=== PATIENT | male | born 1950 | race Caucasian/White ===

== ENCOUNTER 2025-04-18 10:42 | Outpatient (REF) | payer MEDICARE, BC, SELFPAY ==
--- NOTE | 2025-04-18 | EMG_ITS ---
Chief complaint:?R20.2 Paresthesia of skin Reason for referral: right hand pain/numbness Referred by:?Pradeep Gee MD Procedure done: Right upper extremity NCS/EMG Right median and ulnar motor studies were performed with F responses. Right radial sensory and median the mixed sensory studies were performed. Right median and ulnar ortho sensory studies were also performed an EMG needle examination was performed. Findings: Right median motor distal latency was moderately prolonged with normal amplitude and conduction velocity. Right median mixed distal latency was moderately prolonged with moderately slow conduction velocity. Right radial sensory conduction velocity was mildly similarly mildly low amplitude. Needle examination revealed long duration polyphasic potential in right mid cervical paraspinals and long duration tall polyphasic potentials in triceps deltoid and biceps. Impression: 1. [id number] right median neuropathy across carpal tunnel 2. Chronic right mid cervical radiculopathy Cod[place] 80192 1 extremity MTDD
--- OUTSIDE RECORDS SUMMARY | 2025-04-18 13:07 | XMS_ITS | Clinical Summary ---
Author Organization [facility] Address [address] [place] [address] Care Team Providers Care Commercial Artist Name Role Phone Colin Shrestha Primary Care Provider Allergies Active Allergy Reactions Criticality Noted Date Comments Atorvastatin Calcium Unknown 11/02/2005 Codeine Nausea And Vomiting 08/09/2005 Medications lisinopril (PRINIVIL,ZESTR IL) 20 mg tablet TAKE 1 TABLET BY MOUTH TWICE DAILY 03/07/2019 Active vitamin D3 1,000 unit capsule Take 1 capsule by mouth. Active vitamin S32-pidpf acid 0.5-1 mg tablet Take 1 tablet by mouth. Active hydroCHLOROthia zide (HYDRODIURIL) 25 mg tablet Take 12.5 mg by mouth. 05/25/2019 Active cyclobenzaprine (FLEXERIL) 10 mg tablet TK 1 T PO TID PRF MSP 04/12/2019 Active timolol (TIMOPTIC) 0.5% ophthalmic solution 05/17/2019 Active milk thistle 175 mg tablet Take 175 mg by mouth daily. Active alpha lipoic acid 300 mg capsule Take by mouth. Active coQ10, ubiquinol, 100 mg capsule Take by mouth. Active resveratrol 100 mg capsule Take by mouth. Active vitamin B complex capsule Take 1 capsule by mouth daily. Active milk this frt xt/milk this frt (MILK THISTLE EXTRACT ORAL) Take by mouth. Active MILK THISTLE ORAL Take by mouth. Active diclofenac (VOLTAREN) 1% gel SMARTSIG:Gra m(s) Topical PRN 08/27/2021 Active amLODIPine (NORVASC) 2.5 mg tablet SMARTSI Tablet(s) By Mouth Daily 09/09/2022 Active dorzolamide-miles oloL (COSOPT) 22.3-6.8 mg/mL ophthalmic solution SMARTSI Drop(s) In Eye(s) Twice Daily 08/25/2022 Active Social History Tobacco Use Types Packs/Day Years Used Date Smoking Tobacco: Never Assessed Sex and Gender Information Value Date Recorded Sex Assigned at Male 04/25/2021 8:41 AM EDT Legal Sex Male 5:53 AM EDT Gender Identity Male 04/25/2021 8:41 AM EDT Sexual Orientation Straight 04/25/2021 8: 41 AM EDT Last Filed Vital Signs Vital Sign Reading Time Taken Comments Blood Pressure 165/78 09/29/2022 11:26 AM EDT Pulse 93 09/29/2022 11:25 AM EDT Temperature 36.6 C (97.9 F) 09/29/2022 11:25 AM EDT Respiratory Rate 16 09/29/2022 11:25 AM EDT Oxygen Saturation 99% 09/29/2022 11:25 AM EDT Inhaled Oxygen Concentration - - Weight 64.9 kg (143 lb) 09/29/2022 11:25 AM EDT Height 165.1 cm (5' 5 ) 07/23/2020 1:58 PM EST Body Mass Index 23.8 07/23/2020 1:58 PM EST Plan of Treatment Health Maintenance Due Date Last Done Comments Cologuard 1952 Colon Cancer Screening 1950 Colonoscopy 1950 FOBT / Fit Test 1950 Sigmoidoscopy 1950 Zoster Vaccines (3 of 3) 10/24/2018 019, 08/25/2018, 12/31/2013 Alcohol/Substance Use Screening 06/27/2024 Health Care Proxy Review 06/27/2024 COVID-19 Vaccine ( season) 2025 03/24/2022, 04/22/2021, 10/22/2020, Additional history exists Influenza Vaccine (#1) 2025 2, 03/23/2021, 03/11/2020, Additional history exists RSV Vaccine (60+ years old and patients) (1 - 1-dose 75+ series) 01/03/2027 DTaP,Tdap,and Td Vaccines (3 - Td or Tdap) 03/11/2030 03/11/2020, 11/17/2009, 07/28/1999 Pneumococcal Vaccine: 50+ Years Completed 2019, 05/24/2017, 11/30/2013 Hepatitis B Vaccines Aged Out No long er eligible based on patient's age to complete this topic Insurance MEDICARE [facility] FEDERAL [facility] FED 65 PLUS on file Care Teams Commercial Artist Relationship Specialty Start Date End Date Colin Shrestha [address] [place] [phone] PCP - General Hematology 08/31/21
--- OUTSIDE RECORDS SUMMARY | 2025-04-18 13:07 | XMS_ITS | Encounter Summary ---
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 Encounter Details Date Type Department Care Team (Late st Contact Info) Description 04/05/2025 Telephone Internal Medicine - [facility] [address] [place] [phone] Carlito Schumacher MD [address] [place] [phone] Social History Tobacco Use Types Packs/Day Years Used Date Smoking Tobacco: Every Day Cigarettes 1 56.8 Started: 1967 Smokeless Tobacco: Never Comments:Smoking 2 to 3 cigs daily Alcohol Use Standard Drinks/Week Comments No 0 (1 standard drink = 0.6 oz pur e alcohol) Housing Instability Answer Date Recorde d Are you worried that in the next 2 months you may not have stable housing? No 11/08/2024 Food Access & Nutrition Answer Date Rec orded Do you have access to a vari ety of food including fruits and vegetables? Yes 11/08/2024 Access to Healthcare Answer Date Record ed Within the last 3 months, kaylan parra many times did you visit the emergency department for your medical care? 0 11/08/2024 Health Literacy Answer Date Recorded How often do you need to hav e someone help you when you read instructions, pamphlets, or other written material from your doctor or pharmacy? Never 11/08/2024 Caregiver: How often do you need to have someone help you when you read instructions, pamphlets, or other written material from your doctor or pharmacy? Not on file 11/08/2024 Financial Risk Answer Date Recorded How hard is it for you to pa y for the very basics like food, housing, medical care, and air conditioning / heating? Not asked 11/08/2024 Transportation Answer Date Recorded Has the lack of transportati on kept you from meetings, work, or from getting things needed for daily living? No Has the lack of transportati on kept you from medical appointments or from getting medications? No 11/08/2024 Social Isolation Answer Date Recorded How often do you feel lonely or isolated from ose around you? Rarely 11/08/2024 Food Risk Answer Date Recorded Within the past 12 months we worried whether our food would run out before we got money to buy more. Never true 11/08/2024 Within the past 12 months th e food we bought just didn't last and we didn't have money to get more. Never true 11/08/2024 Dependent Care Answer Date Recorded Do you need help finding or paying for care for your loved ones. For example, director child or elderly care for an older adult? No 11/08/2024 Education Answer Date Recorded Do you think completing more education or training, like finishing a GED, going to college, or learning a trade, would be helpful for you? No 11/08/2024 Employment and Income Answer Date Recor ded During the last four weeks, have you been actively looking for work? No 11/08/2024 Living Situation Answer Date Recorded What is your living situation? Unrecognized valu e 11/08/2024 Sex and Gender Information Value Date Recorded Sex Assigned at Male 07/18/2024 7:57 PM EST Legal Sex Male 2:35 AM EST Gender Identity Male 07/18/2024 7:57 PM EST Sexual Orientation Straight 07/18/2024 7: 57 PM EST documented as of this encounter Progress Notes * Chandrika Bishop - 04/12/2025 10:33 AM EDT Letter upfront for pickup * Carlito Schumacher MD - 04/12/2025 9:19 AM EDT signed * Katharine Chen MA - 04/05/2025 2:05 PM EDT Letter pending. Ok to wait * Tommie Ocasio - 04/05/2025 1:56 PM EDT Letter requested for: [facility] [address] Reason for letter: Excuse from Grand Jury Duty/ Badge # [id number], date 05-27-25 Specific notations needed in body of letter: pt is unable to serve to to his medical issues: can't sit for extended periods due to pain & loss of hearing and other Medical issues Date needed for completion: YEVGENIY/ must respond to summon within next 3-5 business days When completed: pls call and pt will diamond picker. [phone] documented in this encounter Plan of Treatment Upcoming Encounters Date Type Department Care Team (Late st Contact Info) Description 07/01/2025 11:30 AM EST Office Visit Internal Medicine - [address] [phone] Carlito Schumacher MD [address] [place] [phone] documented as of this encounter Visit Diagnoses Not on filedocumented in this encounter Additional Health Concerns Assessment Noted Time PHQ-9 Depression Total Score: 0 11/09/19 9:45 AM EDT documented as of this encounter Care Teams Logging Engineer Relationship Specialty Start Date End Date Carlito Schumacher MD [address] [place] [phone] PCP - General Internal Medicine 06/29/24 documented as of this encounter
--- OUTSIDE RECORDS SUMMARY | 2025-04-18 13:07 | XMS_ITS | Clinical Summary ---
Author Organization [address] [place] [address] [place] [phone] Phone Care Team Providers Care Conceptor Name Role Phone Carlito Schumacher MD Primary Care Provider [phone] Allergies Active Allergy Reactions Criticality Noted Date Comments Atorvastatin High 11/02/2005 Other Reaction(s): liver and renal failure Codeine Nausea And Vomiting High 08/09/2005 Other Reaction(s): NAUSEA/VOMITING Medications diclofenac (VOLTAREN) 1 % topical gel Apply 2 g topically 4 times daily. Apply 2 grams to affected area 4 times daily 05/25/20 21 Active cyanocobalamin , vitamin B-12, (VITAMIN B-12 ORAL) Take 1 tablet by mouth 1 (one) time each day. Active cholecalcifero l (VITAMIN D-3) 25 mcg (1,000 unit) capsule Take 1 Cap by mouth daily. Active ubidecarenone (CO Q-10 ORAL) 1 Cap daily. Ac tive MULTIVITAMIN ORAL Take 1 tablet by mouth 1 (one) time each day. Active omeprazole (PriLOSEC) [address] capsule Take 1 capsule (20 mg total) by mouth 1 (one) time each day. Do not crush or chew. 30 each 07/12/19 25 026 Active ascorbic acid (VITAMIN C) 1,000 mg tablet Take 1 tablet (1,000 mg total) by mouth 1 (one) time each day. Active phytonadione, vit K1, (vitamin k) 100 mcg tablet Take 1 tablet (100 mcg total) by mouth 1 (one) time each day. K1 +2 Active magnesium oxide (MAG-OX) 400 mg magnesium tablet Take 1 tablet (400 mg total) by mouth 1 (one) time each day. Active fluticasone propionate (FLONASE) 50 mcg/actuation nasal sprayIndicatio ns:Allergic rhinitis, unspecified seasonality, unspecified trigger Administer 2 sprays into each nostril 1 (one) time each day for 14 days. Shake gently. Before first use, prime pump. After use, clean tip and replace cap. 16 g 07/18/19 25 Active senna-docusate (PERICOLACE) 8.6-50 mg per tablet Take 1 tablet by mouth 2 (two) times a day. 180 each 1 07/27/19 25 Active predniSONE (DELTASONE) 20 mg tablet 1 tablet po tid x 3 days,then 1 tablet po bid x 3days,then 1 tablet po qd x 3days 18 tablet 10/05/19 25 Active cyclobenzaprin e (FLEXERIL) 10 mg tabletIndicati ons:Chronic bilateral low back pain without sciatica TAKE 1 TABLET(10 MG) BY MOUTH AT BEDTIME NEEDED FOR MUSCLE SPASMS 20 tablet 10/25/19 25 Active nicotine (Nicoderm CQ) 14 mg/[address] 1 patch on the skin 1 (one) time each day at the same time. 30 each 11/14/19 25 Active fluticasone-sa lmeterol (ADVAIR DISKUS) 250-50 mcg/dose diskus inhaler Inhale 1 puff by mouth 2 (two) times a day. Rinse mouth with water after use to reduce aftertaste and incidence of candidiasis. Do not swallow. 1 each 11/14/19 25 05 026 Active amLODIPine (NORVASC) 2.5 mg tablet TAKE 1 TABLET(2.5 MG) BY MOUTH 1 TIME EACH DAY 90 tablet 1 12/06/19 25 Active hydroCHLOROthi azide (HYDRODIURIL) 25 mg tablet TAKE 1/2 TABLET BY MOUTH DAILY 45 tablet 1 01/17/20 25 Active lisinopriL (PRINIVIL,ZEST RIL) 20 mg tablet TAKE 1 TABLET BY MOUTH TWICE DAILY 180 tablet 1 01/29/20 25 Active timoloL maleate 0.5 % drops, once daily Administer 1 drop into both eyes 2 (two) times a day. 10 mL 04/15/20 25 Active albuterol HFA (PROAIR HFA ; PROVENTIL HFA ; VENTOLIN HFA) 90 mcg/actuation inhaler INHALE 2 PUFFS BY MOUTH EVERY 6 HOURS NEEDED FOR COUGH OR WHEEZING 8.5 g 2 04/17/20 25 Active dorzolamide-ti moloL (COSOPT) 22.3-6.8 mg/mL ophthalmic solution Administer 1 drop into both eyes 2 (two) times a day. 10 mL 04/17/20 25 Active timoloL maleate 0.5 % drops, once daily Place 1 Drop into both eyes daily. 025 Discontinued(Re order) albuterol HFA (PROAIR HFA ; PROVENTIL HFA ; VENTOLIN HFA) 90 mcg/actuation inhaler INHALE 2 PUFFS BY MOUTH EVERY 6 HOURS NEEDED FOR COUGH OR WHEEZING 8.5 g 2 02/01/20 25 025 Discontinued dorzolamide-ti moloL (COSOPT) 22.3-6.8 mg/mL ophthalmic solution Administer 1 drop into both eyes 2 (two) times a day. 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 Padilla later in including MRI. IMO update Lesion of radial nerve 04/25/2006 Hyperlipidemia 11/23/2005 Alcoholic cirrhosis of liver (CMS/HCC V24, CMS/H CC V28) 11/02/2005 Essential hypertension, benign 11/02/2005 Overview (05/11/2024): 03/07/18 Echo WNL, aortic sclerosis, trace AI, MR. Normal LVEF. 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 Encounters Date Type Department Care Team Description 04/05/2025 Telephone Internal Medicine - [address] [phone] Carlito Schumacher MD 02/02/2025 10:15 AM EDT Office Visit Walk-In Clinic - [address] [phone] Anna Rocha NP Dysuria (Primary Dx); Frequent urination; Acute cystitis without hematuria 01/17/2025 11:45 AM EDT Office Visit Pulmonology - [address] [place] [address] Aniya Penaloza MD Pulmonary emphysema, unspecified emphysema type ([facility] V24, [facility] V28) (Primary Dx); Tobacco use from Last 3 Months Immunizations Immunization Administration Dates Next Due COVID-19 (Moderna/Spikevax) 12yo and older 03/27/2023 H1N1 Inj Preservative Free 05/21/2009 Hepatitis A Adult (Havrix; V aqta) 19yo and older 03/27/2013 Influenza trivalent, 0.5mL ( Fluad) 65yo and older 03/09/2022,03/23/2021,03/11/2020,03/13,03/14/2018,04/08/2017,03/28/2014 ,03/30/2013,03/17/2012,04/23/2011,02/26,04/07/2007,04/08/2006, 5 Influenza trivalent, 0.5mL, preservative free (Fluarix; FluLaval; Fluzone) ages 6mo and older (Afluria) 3 years and older 04/05/2017,04/05/2016,04/04/2015,04/07,04/01/2008 Influenza, Unspecified 03/23/2023 Moderna SARS-CoV-2 COVID-19, mRNA, LNP-S, preservative free 10/22/2020,09/26/2020 Pneumococcal conjugate 13 va lent (Prevnar 13, PCV13) 2mo and older 05/24/2017 Pneumococcal polysaccharide 23 valent (Pneumovax 23) 2yo and older 2019,11/30/2013 Td Tetanus diptheria (Tdvax) 7yo and older 03/11/2020,07/28/1999 Tdap Tetanus diptheria acell ular pertussis (Boostrix; Adacel) 7yo and older 11/17/2009 Zoster Live 12/31/2013 Zoster recombinant (Shingrix ) 19yo and older 08/29/2018,08/25/2018 Surgical History Surgery Date Site/Laterality Comments MULTIPLE TOOTH EXTRACTIONS age 16 PROCEDURE: HISTORICAL DENTAL EXTRACTION; COMMENT: bled for 2 wks due to factor 9 def, mult transfusions HERNIA REPAIR L 04/03 Left PROCEDURE: HISTORICAL HERNIA REPAIR/ING; COMMENT: Dr. 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, CMS/HCC V28) 08/09/2005 DX:Congenital factor IX dis order (HCC); COMMENT: Dx'd age 7 when cut tongue Alcoholic cirrhosis of liver (CMS/HCC V24, CMS/HCC V28) 11/02/2005 DX:Alcoholic cirrhosis of li jamey (HCC) Essential hypertension, benign 11/02/2005 D X:Essential hypertension, benign Urinary frequency 11/02/2005 DX:Urinary luis quency Other and unspecified hyperlipidemia 11/23/2005 DX:Other and unspecified hyperlipidemia Lesion of radial nerve 04/25/2006 DX:Lesion of radial nerve Alcoholic cirrhosis of liver (CMS/HCC V24, CMS/HCC V28) 11/02/2005 DX:Alcoholic cirrhosis of li jamey (HCC) Closed nondisplaced fracture of metatarsal bone of right foot with routine healing 06/10/2016 DX:Closed nondisplaced fract ure of metatarsal bone of right foot with routine healing Family History Medical History Relation Name Comments Other: factor IX deficiency Brother 1 Other: factor IX deficiency Mother Relation Name Status Comments Brother 1 Alive younger has fac tor 9 deficiency same as pt, & HTN Brother 2 Alive hyperlipidemia, HTN Father (Age 62) [place], diabet es Mother (Age 68) heavy smok er, COPD Social History Tobacco Use Types Packs/Day Years Used Date Smoking Tobacco: Every Day Cigarettes 1 56.8 Started: 1966 Smokeless Tobacco: Never Tobacco Cessation:Ready to Q uit: Not Asked; Counseling Given: Not Answered Comments:Smoking 2 to 3 cigs daily Alcohol [...] do you feel lonely or isolated from th ose around you? Rarely 11/08/2024 Food Risk [...] care for your loved ones. For example, school childcare attendant or elderly care for an older adult? [...] Orientation Straight 07/18/2024 7: 57 PM EST Obstetrics History Last Filed Vital Signs Vital Sign Reading Time Taken Comments Blood Pressure 138/66 02/02/2025 10:11 AM EDT Pulse 80 02/02/2025 10:11 AM EDT Temperature 36.5 C (97.7 F) 02/02/2025 10:11 AM EDT Respiratory Rate 16 02/02/2025 10:11 AM EDT Oxygen Saturation 97% 01/17/2025 11:52 AM EDT Inhaled Oxygen Concentration - - Weight 58.6 kg (129 lb 3.2 oz) 01/17/2025 11:52 AM EDT Height 165.1 cm (5' 5 ) 01/17/2025 11:52 AM EDT Body Mass Index 21.5 01/17/2025 11:52 AM EDT Plan of Treatment Upcoming Encounters Date Type Department Care Team (Late st Contact Info) Description 07/01/2025 11:30 AM EST Office Visit Internal Medicine - [address] [phone] Carlito Schumacher MD [address] [place] [phone] Health Maintenance Due Date Last Done Comments Colorectal Cancer Screening: Colonoscopy 1950 RSV Immunization Adult Patients (1 - Risk 50-74 years 1-dose series) 01/03/2002 Zoster Vaccines (3 of 3) 10/24/2018 019, 08/25/2018, 12/31/2013 Medicare Annual Wellness Visit 06/16/2024 06/16/2023 COVID-19 Vaccine ( season) 2025 04/05/2024, 03/27/2023, 03/24/2022, Additional history exists Influenza Vaccine (#1) 2025 , 03/23/2023, 03/16/2023, Additional history exists Hypertension/CHF/CAD Annual BMP Blood Test 06/29/2025 06/29/2024, 11/28/2023, 11/28/2023 Social Influencers of Health Screening 11/08/2025 11/08/2024 Falls Risk Assessment 11/15/2025 11/15/2024, 023 Lung Cancer Screening (Low Dose CT) 01/02/2026 01/02/2025 Cholesterol Screening (Lipid Panel) 06/29/2029 06/29/2024, 11/28/2023, 11/28/2023 DTaP,Tdap,and Td Vaccines (4 - Td or Tdap) 03/11/2030 03/11/2020, 11/17/2009, 07/28/1999 Abdominal Aortic Aneurysm (AAA) Screen Completed 07/20/2011 Hepatitis A Vaccines Aged Out 03/27/2013 No long er eligible based on patient's age to complete this topic Pneumococcal Vaccine: 50+ Years Completed 2019, 05/24/2017, 11/30/2013 Hepatitis C Screening Completed 08/31/2021, 022 Depression Screening Completed 11/08/2024, 06/16/20 23 HIB Vaccines Aged Out No longer eligi ble based on patient's age to complete this topic HPV Vaccines Aged Out No longer eligi ble based on patient's age to complete this topic Hepatitis B Vaccines Aged Out No long er eligible based on patient's age to complete this topic IPV Vaccines Aged Out No longer eligi ble based on patient's age to complete this topic MMR Vaccines Aged Out No longer eligi ble based on patient's age to complete this topic Meningococcal ACWY Vaccine Aged Out N o longer eligible based on patient's age to complete this topic Meningococcal B Vaccine Aged Out No l onger eligible based on patient's age to complete this topic RSV Immunization Patients Under 20 months Aged Out No longer eligible based on patient's age to complete this topic Varicella Vaccines Aged Out No longer eligible based on patient's age to complete this topic Procedures Procedure Name Priority Date/Time Associated Diagnosis Comments POC URINE AUTO W/O MICRO Routine 02/02/2025 11:55 AM EDT Frequent urination CULTURE URINE Routine 02/02/2025 10:49 AM EDT Frequent urination Dysuria CT LUNG SCREENING Routine 01/02/2025 10: 04 AM EDT Encounter for screening for malignant neoplasm of respiratory organs Nicotine dependence, cigarettes, uncomplicated COMPREHENSIVE METABOLIC PANEL Routine 06/29/2024 9:18 AM EST Screening for diabetes mellitus LIPID PANEL WITH REFLEX TO DIRECT LDL Routine 06/29/2024 9:18 AM EST Screening for hyperlipidemia DEPRESSION SCREENING Routine 06/16/2023 FALLS RISK ASSESSMENT Routine 06/16/2023 HEPATITIS C SCREENING Routine 08/31/2021 ABDOMINAL AORTIC ANEURYSM SCRREN Routine 07/20/2011 from Last 3 Months or Most Recently Relevant to Health Maintenance Results * (ABNORMAL) POC Urine Auto W/O Micro (02/02/2025 11:55 AM EDT) Leukocytes UA POC Positive(A) Negative Nitrite UA POC Negative Negative Urobilinogen UA POC Negative Negative Protein UA POC Positive(A) Negative PH UA POC 6.0 5.0 - 9.0 Blood UA POC Positive(A) Negative, Trace Specific [place] UA POC 1.010 1.001 - 1.035 Ketones UA POC Negative Negative Bilirubin UA POC Negative Negative Glucose UA POC Normal Normal, Trace Color UA POC Yellow CLARITY, URINE POC Cloudy Urine Urine specimen obtained by clean catch procedure / Unknown 02/02/2025 11:55 AM EDT us Anna Rocha NP POINT OF CARE TEST ENTER/EDIT ORDERABLES Final Result * (ABNORMAL) Culture urine (02/02/2025 10:49 AM EDT) Culture, Urine >=100,000 CFU/mL Streptococcus viridans group(A) LAMAR 02/04/2025 10:41 AM EDT [facility] Comment: Susceptibility testing not routinely performed. If further therapeutic information is required, please consult an infectious disease specialist. This is an edited result. Previous organism was Gram Positive Cocci on 02/03/2025 at 1040 EDT. Urine Urine specimen obtained by clean catch procedure / Unknown Non-blood Collection / Unknown 02/02/2025 10:49 AM EDT 02/02/2025 10:49 AM EDT us Anna Rocha NP LAB MICROBIOLOGY - GENERAL ORD ERABLES Final Result [facility] [address] [place] [address], * CT Lung Screening (01/02/2025 10:04 AM EDT) Anatomical Region Laterality Modality Chest Computed Tomogra phy 01/02/2025 3:15 PM EDT Impressions 01/02/2025 3:18 PM EDT No suspicious pulmonary nodule. Lung RADS 1, recommend low-dose screening chest CT in 12 months -------- FINAL REPORT -------- Dictated By: Royce Epperson Dictated Date: 01/02/2025 15:15 ET Assigned Physician: Royce Epperson Reviewed and Electronically Signed By: Royce Epperson Signed Date: 01/02/2025 15:18 ET Workstation ID: [id number] Transcribed By: Self Edit Transcribed Date: 01/02/2025 15:15 ET Narrative 01/02/2025 3:18 PM EDT INDICATION: Current smoker with 56 pack-year smoking history FINDINGS: Low-dose CT scan of the chest obtained as a lung cancer screening study. Scanner: [employer]on[employer] Revolution frontier 128 slice VCT Dose reduction technique: ASIR (Adaptive statistical iterative reconstruction) and/or AEC (automated exposure control) Dose: total exam DLP 108.55 mGY per cm COMPARISON: No prior studies are available for comparison. Lung: No infiltrates or effusions. No discrete pulmonary nodules or masses. Minimal scarring noted medially within the left lung base. Lymph nodes: No thoracic lymphadenopathy. Mediastinum: Trachea and esophagus are within normal limits. Heart normal in size and shape without pericardial effusion. Mediastinal vascular structures are normal in course and caliber. Bony structures: Within normal limits for the patient's age. Mild scoliotic changes. Procedure Note Royce Epperson MD - 01/02/2025 INDICATION: Current smoker with 56 pack-year smoking history FINDINGS: Low-dose CT scan of the chest obtained as a lung cancerscreening study. Scanner: GE Revolution frontier 128 slice VCT Dose reduction technique: ASIR (Adaptive statistical iterativereconstruction) and/or AEC (automated exposure control) Dose: total exam DLP 108.55 mGY per cm COMPARISON: No prior studies are available for comparison. Lung: No infiltrates or effusions. No discrete pulmonary nodules ormasses. Minimal scarring noted medially within the left lung base. Lymph nodes: No thoracic lymphadenopathy. Mediastinum: Trachea and esophagus are within normal limits. Heart normalin size and shape without pericardial effusion. Mediastinal vascularstructures are normal in course and caliber. Bony structures: Within normal limits for the patient's age. Mildscoliotic changes. IMPRESSION: No suspicious pulmonary nodule. Lung RADS 1, recommend low-dose screening chest CT in 12 months -------- FINAL REPORT -------- Dictated By: Royce Epperson Dictated Date: 01/02/2025 15:15 ET Assigned Physician: Royce Epperson Reviewed and Electronically Signed By: Royce Epperson Signed Date: 01/02/2025 15:18 ET Workstation ID: [id number] Transcribed By: Self Edit Transcribed Date: 01/02/2025 15:15 ET us Teresa Su MD IMG CT PROCEDURES Final Result * (ABNORMAL) Lipid panel with reflex to direct LDL (06/29/2024 9:18 AM EST) Cholesterol 166 0 - 200 mg/dL LAB CHEMISTRY METHOD 06/29/2024 1:15 PM EST [facility] Triglycerides 113 0 - 150 mg/dL LAB CHEMISTRY METHOD 06/29/2024 1:15 PM EST [facility] HDL 39(L) >=40 mg/dL LAB CHEMISTRY METHOD 06/29/2024 1:15 PM EST [facility] LDL Calculated 104(H) 0 - 100 mg/dL LAB CHEMISTRY METHOD 06/29/2024 1:15 PM EST [facility] VLDL Cholesterol Maximo 22.6 mg/dL LAB CHEMISTRY METHOD 06/29/2024 1:15 PM EST [facility] Non HDL Chol. (LDL+VLDL) 127 <145 mg/dL LAB CHEMISTRY METHOD 06/29/2024 1:15 PM EST [facility] Chol/HDL Ratio 4.3 0.0 - 4.4 LAB CHEMISTRY METHOD 06/29/2024 1:15 PM EST [facility] Blood Venous blood specimen / Unknown Venipuncture / Unknown 06/29/2024 9:18 AM EST 06/29/2024 9:18 AM EST us Carlito Schumacher MD LAB BLOOD ORDERABLES Final Res ult [facility] [address] [place] [address], [place] [phone] * (ABNORMAL) Comprehensive metabolic panel (06/29/2024 9:18 AM EST) Sodium 137 133 - 145 mmol/L LAB CHEMISTRY METHOD 06/29/2024 1:[address] [facility] Potassium 4.0 3.5 - 5.5 mmol/L LAB CHEMISTRY METHOD 06/29/2024 1:[address] [facility] Chloride 104 96 - 110 mmol/L LAB CHEMISTRY METHOD 06/29/2024 1:[address] [facility] CO2 29 21 - 32 mmol/L LAB CHEMISTRY METHOD 06/29/2024 1:[address] [facility] Anion Gap 4 3 - 11 LAB CHEMISTRY METHOD 06/29/2024 1:[address] [facility] Glucose 106(H) 70 - 100 mg/dL LAB CHEMISTRY METHOD 06/29/2024 1:[address] [facility] BUN 36(H) 5 - 25 mg/dL LAB CHEMISTRY METHOD 06/29/2024 1:[address] [facility] Creatinine 1.14 0.70 - 1.30 mg/dL LAB CHEMISTRY METHOD 06/29/2024 1:[address] [facility] eGFR 68 >=60 mL/min/1. 73m2 LAB CHEMISTRY METHOD 06/29/2024 1:[address] [facility] Comment:Calculation based on the Chronic Kidney Disease Epidemiology Collaboration (CKD-EPI) equation refit without adjustment for race. BUN/Creatinine Ratio 31.6 LAB CHEMISTRY METHOD 06/29/2024 1:[address] [facility] Calcium 9.0 8.5 - 10.5 mg/dL LAB CHEMISTRY METHOD 06/29/2024 1:[address] [facility] AST (SGOT) 20 10 - 42 unit/L LAB CHEMISTRY METHOD 06/29/2024 1:[address] [facility] ALT (SGPT) 21 10 - 60 unit/L LAB CHEMISTRY METHOD 06/29/2024 1:[address] [facility] Alkaline Phosphatase 64 42 - 121 unit/L LAB CHEMISTRY METHOD 06/29/2024 1:[address] [facility] Total Protein 7.2 6.0 - 8.0 g/dL LAB CHEMISTRY METHOD 06/29/2024 1:15 PM EST [facility] Albumin 3.9 3.2 - 5.0 g/dL LAB CHEMISTRY METHOD 06/29/2024 1:15 PM EST [facility] Total Bilirubin 0.6 0.0 - 1.4 mg/dL LAB CHEMISTRY METHOD 06/29/2024 1:15 PM EST [facility] Blood Venous blood specimen / Unknown Venipuncture / Unknown 06/29/2024 9:18 AM EST 06/29/2024 9:18 AM EST Carlito Schumacher MD LAB BLOOD ORDERABLES Final Res ult [facility] [address] [place] [address], * Falls Risk Assessment (06/16/2023) [facility] Falls Risk Assessment abstracted Historical Provider HEALTH MAINTENANCE Final Result * Depression Screening (06/16/2023) [facility] Depression Screening abstracted Historical Provider HEALTH MAINTENANCE Final Result * Hepatitis C Screening (08/31/2021) [facility] Hepatitis C Screening abstracted Historical Provider HEALTH MAINTENANCE Final Result * Abdominal Aortic Aneurysm Screen (07/20/2011) [facility] Abdominal Aortic Aneurysm (AAA) Screening abstracted, no interpretation Anatomical Region Laterality Modality Other Historical Provider HEALTH MAINTENANCE Final Result from Last 3 Months or Most Recently Relevant to Health Maintenance Insurance MEDICARE [facility] Care Teams Conceptor Relationship Specialty Start Date End Date Carlito Schumacher MD [address] [place] [id number] PCP - General Internal Medicine 06/29/24
== END 2025-04-18 10:43 | disposition home or self-care (01) ==
LOC: HO.NEURO 10:42
PROVIDERS: PCP Internal Medicine; Visit Provider Internal Medicine Rheumatology
DX: R20.2 Paresthesia of skin (principal); R20.0 Anesthesia of skin; M79.641 Pain in right hand
CPT/HCPCS: 95886; 95910

== ENCOUNTER → 2025-04-18 11:05 | Outpatient (BNV) | payer MEDICARE, BC, SELFPAY | PROVIDERS: PCP Internal Medicine; Visit Provider Psychiatry & Neurology Neurology | DX: G56.01 Carpal tunnel syndrome, right upper limb (principal); M50.120 Mid-cervical disc disorder, unspecified level | CPT/HCPCS: 95886; 95910 ==